=== PATIENT | female | born 1985 | race Caucasian/White ===

== ENCOUNTER 2021-09-24 08:16 | Day surgery (SDC) | payer OTHER ==
[~2021-09-24 08:16] MED LIST: Albuterol 0.083% 2.5 MG/3 ML Neb Soln NEB PRN; Dexamethasone 4 MG/ML 5 ML MDV ONE; HYDROmorphone 1 MG/ML Syringe IVPUSH PRN; Ketorolac 30 MG/ML SDV ONE; Lactated Ringers 1,000 ML IV SCH; Lidocaine 2% 5 ML SDV ONE; Metoclopramide 10 MG/2 ML SDV IVPUSH PRN; Midazolam 1 MG/ML 2 ML SDV ONE; Morphine 2 MG/ML SYRINGE IVPUSH PRN; Naloxone 0.4 MG/ML SDV IVPUSH PRN; Ondansetron 4 MG/2 ML SDV IVPUSH PRN; Ondansetron 4 MG/2 ML SDV ONE; Propofol 200 MG/20 ML SDV ONE; Rocuronium Bromide 50 MG/5 ML Syringe ONE; Sugammadex Sodium 200 MG/2 ML VIAL ONE; fentaNYL 100 MCG/2 ML SDV IVPUSH PRN; fentaNYL 100 MCG/2 ML SDV ONE
== END 2021-09-24 11:05 | disposition home or self-care (01) ==
LOC: MW.SDS 08:16
PROVIDERS: ATTEND Obstetrics & Gynecology
DX: O02.0 Blighted ovum and nonhydatidiform mole (principal); E66.9 Obesity, unspecified; K21.9 Gastro-esophageal reflux disease without esophagitis; Z98.890 Other specified postprocedural states; Z79.899 Other long term (current) drug therapy; Z88.0 Allergy status to penicillin; Z88.8 Allergy status to other drugs, medicaments and biological substances
CPT/HCPCS: 36415; 59812; 85027; J0131; J1100; J1885; J2250; J2405; J2704; J3010; J3490; J7120; 01965

== ENCOUNTER 2022-07-15 09:39 | Inpatient (IN) | payer OTHER ==
[2022-07-15] MEDS ORDERED: Clindamycin Phosphate in D5W 900 MG in Premix Bag 1 BAG IV ONE ×2 (10:19)
[2022-07-15] MEDS ORDERED: Sodium Chloride 0.9% 10 ML Syringe FLUSH PRN (10:19)
[2022-07-15] MEDS ORDERED: Sodium Chloride 0.9% 20 ML SDV IV PRN (10:19)
[2022-07-15] MEDS ORDERED: Citric Acid/Sodium Citrate Solution 30 ML Cup PO ONE (10:19)
[2022-07-15] MEDS ORDERED: Sodium Chloride 0.9% 2.5 ML Syringe FLUSH PRN (10:19)
[2022-07-15] MEDS ORDERED: Lactated Ringers 1,000 ML IV SCH ×2 (10:30→12:15)
[2022-07-15] MEDS ORDERED: Oxytocin/0.9 % Sodium Chloride 30 UNIT/500 ML BAG IV SCH (10:30)
[2022-07-15] MEDS ORDERED: Ketorolac 30 MG/ML SDV ONE (10:37)
[2022-07-15] MEDS ORDERED: Ondansetron 4 MG/2 ML SDV ONE (10:37)
[2022-07-15] MEDS ORDERED: Ropivacaine 0.5% 5 MG/ML 30 ML SDV ONE (10:37)
[2022-07-15] MEDS ORDERED: ceFAZolin 1 GM Vial ONE (10:37)
[2022-07-15] MEDS ORDERED: Dexamethasone 4 MG/ML 5 ML MDV ONE (10:37)
[2022-07-15] MEDS ORDERED: Oxytocin 10 Units/1 ML SDV ONE (10:37)
[2022-07-15] MEDS ORDERED: fentaNYL 100 MCG/2 ML SDV ONE (10:37)
[2022-07-15] MEDS ORDERED: Morphine PF 10 MG/10 ML SDV ONE (10:38)
[2022-07-15] MEDS ORDERED: Clindamycin Phosphate in D5W 50 ML IV ONE (11:21)
[2022-07-15] MEDS ORDERED: Acetaminophen/oxyCODONE 325-5 MG Tab PO PRN ×2 (12:15→12:33)
[2022-07-15] MEDS ORDERED: Bisacodyl 10 MG Supp RECTAL PRN (12:15)
[2022-07-15] MEDS ORDERED: Misoprostol 200 MCG Tab RECTAL PRN (12:15)
[2022-07-15] MEDS ORDERED: Lanolin 100% Cream 7 GM Tube TOP PRN (12:15)
[2022-07-15] MEDS ORDERED: Methylergonovine 0.2 MG/1 ML Amp IM PRN (12:15)
[2022-07-15] MEDS ORDERED: Ondansetron 4 MG/2 ML SDV IVPUSH PRN ×2 (12:15→12:33)
[2022-07-15] MEDS ORDERED: diphenhydrAMINE 50 MG/ML SDV IVPUSH PRN ×2 (12:15→12:33)
[2022-07-15] MEDS ORDERED: Oxytocin 10 Units/1 ML SDV IM PRN (12:15)
[2022-07-15] MEDS ORDERED: Tranexamic Acid 1,000 MG in Sodium Chloride 0.9% 100 ML IV PRN (12:15)
[2022-07-15] MEDS ORDERED: ePHEDrine 50 MG/ML SDV IVPUSH PRN ×2 (12:33)
[2022-07-15] MEDS ORDERED: fentaNYL 100 MCG/2 ML SDV IVPUSH PRN (12:33)
[2022-07-15] MEDS ORDERED: Phenylephrine HCl In 0.9% NaCl 1 MG/10 ML Vial IVPUSH PRN (12:33)
[2022-07-15] MEDS ORDERED: Ropivacaine HCl/PF 400 MG in Premix Bag 1 BAG EPIDUR SCH (12:45)
[2022-07-15] MEDS ORDERED: Phenylephrine HCl In 0.9% NaCl 1 MG/10 ML Vial IVPUSH SCH (12:45)
[2022-07-15] MEDS ORDERED: Labetalol 100 MG/20 ML MDV IVPUSH ONE ×2 (16:26→17:36)
[2022-07-15] MEDS ORDERED: Calcium Gluconate 10% 1 GM/10 ML SDV IV PRN (17:24)
[2022-07-15] MEDS ORDERED: Magnesium Sulfate/Water 4 GM in Premix Bag 1 BAG IV ONE (17:24)
[2022-07-15] MEDS: Ketorolac 30 MG/ML SDV IVPUSH SCH (18:17)
[2022-07-15] MEDS: Magnesium Sulfate/Water 20 GM/500 ML BAG IV SCH (18:22)
[2022-07-15 18:27] LABS: CARBON DIOXIDE,CO2 22.7 mmol/L (21.0-32.0)
[2022-07-15] MEDS: Escitalopram 10 MG Tab PO SCH (19:46)
[2022-07-15] MEDS: Simethicone 80 MG Tab.Chew PO SCH (19:46)
[2022-07-15] MEDS: Docusate Sodium 100 MG Cap PO SCH ×2 (19:47→20:23)
[2022-07-16] MEDS: Simethicone 80 MG Tab.Chew PO SCH ×4 (00:42→18:35)
[2022-07-16] MEDS: Ketorolac 30 MG/ML SDV IVPUSH SCH ×4 (00:43→17:05)
[2022-07-16] MEDS: Magnesium Sulfate/Water 20 GM/500 ML BAG IV SCH ×2 (03:31→13:59)
[2022-07-16 04:55] LABS: CARBON DIOXIDE,CO2 25.1 mmol/L (21.0-32.0); POTASSIUM,K 4.4 mmol/L (3.5-5.1)
[2022-07-16] MEDS: Escitalopram 10 MG Tab PO SCH (09:13)
[2022-07-16] MEDS: Docusate Sodium 100 MG Cap PO SCH ×2 (09:13→20:29)
[2022-07-16] MEDS: Labetalol 100 MG Tab PO SCH ×2 (10:50→20:29)
[2022-07-16] MEDS: Ibuprofen 800 MG Tab PO PRN (18:35)
[2022-07-16] MEDS: Acetaminophen/oxyCODONE 325-5 MG Tab PO PRN ×2 (20:28→22:13)
[2022-07-17] MEDS: Simethicone 80 MG Tab.Chew PO SCH ×2 (00:20→06:45)
[2022-07-17] MEDS: Ibuprofen 800 MG Tab PO PRN ×2 (03:00→15:00)
[2022-07-17] MEDS: Acetaminophen/oxyCODONE 325-5 MG Tab PO PRN ×5 (03:15→23:10)
[2022-07-17 05:45] LABS: CARBON DIOXIDE,CO2 24.3 mmol/L (21.0-32.0); POTASSIUM,K 4.4 mmol/L (3.5-5.1)
[2022-07-17] MEDS: Labetalol 100 MG Tab PO SCH ×2 (08:01→21:28)
[2022-07-17] MEDS: Docusate Sodium 100 MG Cap PO SCH ×2 (08:02→21:28)
[2022-07-17] MEDS: Escitalopram 10 MG Tab PO SCH (08:02)
[2022-07-18] MEDS: Simethicone 80 MG Tab.Chew PO SCH (00:39)
[2022-07-18] MEDS: Ibuprofen 800 MG Tab PO PRN (06:16)
[2022-07-18] MEDS: Docusate Sodium 100 MG Cap PO SCH (08:54)
[2022-07-18] MEDS: Labetalol 100 MG Tab PO SCH (08:54)
[2022-07-18] MEDS: Escitalopram 10 MG Tab PO SCH (08:54)
== END 2022-07-18 15:48 | disposition home or self-care (01) | DRG 788 ==
LOC: MW.OB 09:39
PROVIDERS: ADMIT Obstetrics & Gynecology; ATTEND Obstetrics & Gynecology
PROC: 10D00Z1 Extraction of Products of Conception, Low, Open Approach (ICD-10-PCS; principal; 2022-07-15)
DX: O44.03 Complete placenta previa NOS or without hemorrhage, third trimester (principal); O99.214 Obesity complicating childbirth; O34.211 Maternal care for low transverse scar from previous cesarean delivery; F41.9 Anxiety disorder, unspecified; O99.344 Other mental disorders complicating childbirth; Z20.822 Contact with and (suspected) exposure to COVID-19; O14.94 Unspecified pre-eclampsia, complicating childbirth; Z98.890 Other specified postprocedural states; Z90.49 Acquired absence of other specified parts of digestive tract; Z88.0 Allergy status to penicillin; Z88.8 Allergy status to other drugs, medicaments and biological substances; Z91.040 Latex allergy status; Z79.82 Long term (current) use of aspirin; Z79.899 Other long term (current) drug therapy; Z3A.37 37 weeks gestation of pregnancy; Z37.0 Single live birth; Z86.32 Personal history of gestational diabetes
CPT/HCPCS: 36415; 59025; 80053; 81001; 83735; 84550; 85027; 86592; 86850; 86900; 86901; 86920; 87086; 87088; 87186; A9270-GY; J0690; J1100; J1200; J1885; J2274; J2405; J2590; J2795; J3010; J3475; J3490; J7120; U0002